=== PATIENT | female | born 2000 | race American Indian/Alaskan Native ===

== ENCOUNTER 2021-04-12 06:24 | Emergency (ER) | payer SELFPAY ==
[2021-04-12 07:27] LABS: Bilirubin,Urine NEG (Negative); Blood,Urine LG (Negative); Color,Urine Red (Yellow); Mucus,Urine 1+ /HPF; Urobilinogen,Urine < 2.0 mg/dL (<2.0)
[2021-04-12 07:35] LABS: RBC,Urine > 182.0 /HPF (0.0-6.0); WBC,Urine > 182.0 /HPF (0.0-6.0)
--- NOTE | 2021-04-12 08:54 | Emergency Department Report ---
<DANGELO ANDERSON - Last Filed: 04/12/21 13:05> ED Female HPI - General Chief complaint: Urogenital-Female Stated complaint: CHECK UP Time Seen by Provider: 04/12/21 08:47 Source: patient Mode of arrival: Ambulatory Limitations: No Limitations - History of Present Illness Initial comments: 20-year-old female presents to the ER today with complaints of UTI symptoms. Patient states that symptoms started about 2 weeks ago. She reports urinary frequency, urgency, and mild dysuria. She reports no lower abdominal pain or pelvic pain, vaginal discharge, back pain, nausea, vomiting fever, chills. She states that she has been trying to do [id number] natural remedies but she states that does not seem to be helping. She states her last menstrual cycle is currently on now. She is not currently on any control. She takes no medications daily. MD Complaint: dysuria, other (UTI symptoms) -: week(s) (2) - Related Data Previous Rx's Medication Instructions Recorded Last Taken Type cephALEXin [Keflex] 500 mg PO Q6HR #40 capsule 04/12/21 Unknown Rx Allergies Allergy/AdvReac Type Severity Reaction Status Date / Time No Known Allergies Allergy Verified 04/12/21 06:26 ED Review of Systems Comment: All other systems reviewed and negative Constitutional: denies: chills, fever Respiratory: denies: cough, shortness of breath, SOB with exertion, SOB at rest, wheezing Cardiovascular: denies: chest pain, palpitations, dyspnea on exertion, edema, syncope, paroxysmal nocturnal dyspnea Gastrointestinal: denies: abdominal pain, nausea, vomiting, diarrhea, constipation, hematemesis, hematochezia Genitourinary: urgency, dysuria, frequency. denies: hematuria, discharge, abnormal menses, dyspareunia Musculoskeletal: denies: back pain, joint swelling, arthralgia Skin: denies: rash, lesions, change in color, change in hair/nails, pruritus Neurological: denies: headache, weakness, numbness, paresthesias, confusion, abnormal gait, vertigo Psychiatric: denies: anxiety, depression, auditory hallucinations, visual hallucinations, homicidal thoughts, suicidal thoughts Hematological/Lymphatic: denies: easy bleeding, easy bruising ED Past Medical Hx - Past Medical History Previous Medical History?: No - Surgical History Past Surgical History?: No - Medications Home Medications: Home Medications Medication Instructions Recorded Confirmed Last Taken Type cephALEXin [Keflex] 500 mg PO Q6HR #40 capsule 04/12/21 Unknown Rx ED Physical Exam - General Limitations: No Limitations General appearance: alert, in no apparent distress - Head Head exam: Present: atraumatic, normocephalic, normal inspection - Eye Eye exam: Present: normal appearance, PERRL, EOMI Pupils: Present: normal accommodation - Neck Neck exam: Present: normal inspection, full ROM - Respiratory Respiratory exam: Absent: respiratory distress - Cardiovascular Cardiovascular Exam: Present: regular rate - GI/Abdominal GI/Abdominal exam: Present: soft. Absent: distended, tenderness, guarding, rebound - Back Exam Back exam: Present: normal inspection, full ROM. Absent: CVA tenderness (R), CVA tenderness (L) - Neurological Exam Neurological exam: Present: alert, oriented X3, CN II-XII intact, normal gait - Psychiatric Psychiatric exam: Present: normal affect, normal mood - Skin Skin exam: Present: intact ED Disposition Clinical Impression: UTI (urinary tract infection) Disposition: 01 HOME / SELF CARE / HOMELESS Is pt being admited?: No Does the pt Need Aspirin: No Condition: Stable Instructions: Urinary Tract Infection, Adult Additional Instructions: I recommend he drink lots of water. Take the Keflex as prescribed to completion. Follow-up with your PCP as needed. Return to the ER if your symptoms worsens or changes in any way. Prescriptions: cephALEXin [Keflex] 500 mg PO Q6HR #40 capsule Referrals: DARIEL LOPEZ MD [Staff Physician] - 3-5 Days Time of Disposition: 09:34 <BRIAN KHAN - Last Filed: 04/12/21 16:15> ED Review of Systems ROS: Stated complaint: CHECK UP Other details as noted in HPI ED Course Vital Signs 04/12/21 04/12/21 06:26 09:48 Temperature 98.7 F 98.0 F Pulse Rate 105 H 86 Respiratory 18 16 Rate Blood Pressure 148/83 106/78 [Right] O2 Sat by Pulse 100 100 Oximetry ED Medical Decision Making - Lab Data Vital Signs 04/12/21 04/12/21 06:26 09:48 Temperature 98.7 F 98.0 F Pulse Rate 105 H 86 Respiratory 18 16 Rate Blood Pressure 148/83 106/78 [Right] O2 Sat by Pulse 100 100 Oximetry Lab Results 04/12/21 04/12/21 Range/Units 08:47 Unknown Urine Color Red (Yellow) Urine Turbidity Cloudy (Clear) Urine pH 5.0 (5.0-7.0) Ur Specific [place] 1.024 (1.003-1.030) Urine Protein 100 mg/dl (Negative) mg/dL Urine Glucose (UA) Neg (Negative) mg/dL Urine Ketones 20 (Negative) mg/dL Urine Blood Lg (Negative) Urine Nitrite Neg (Negative) Urine Bilirubin Neg (Negative) Urine Urobilinogen < 2.0 (<2.0) mg/dL Ur Leukocyte Esterase Mod (Negative) Urine WBC (Auto) > 182.0 H (0.0-6.0) /HPF Urine RBC (Auto) > 182.0 (0.0-6.0) /HPF U Epithel Cells (Auto) 40.0 H (0-13.0) /HPF Urine Mucus 1+ /HPF Urine HCG, Qual Negative (Negative) Critical care attestation.: If time is entered above; I have spent that time in minutes in the direct care of this critically ill patient, excluding procedure time. ED Disposition Is pt being admited?: No Does the pt Need Aspirin: No
[2021-04-12 09:32] LABS: HCG Qualitative,Urine Negative (Negative)
[2021-04-12 09:52] VITALS: BP 106/78
== END 2021-04-12 09:54 | disposition home or self-care (01) ==
LOC: ED 06:24
DX: N39.0 Urinary tract infection, site not specified (principal)
CPT/HCPCS: 81001; 81025; 87086; 99283